=== PATIENT | male | born 1970 | race Caucasian/White ===

== ENCOUNTER 2016-11-22 17:15 | Emergency (ER) | payer OTHER ==
[2016-11-22] MEDS ORDERED: ASPIRIN 81 MG CHEW TAB ONE (17:27)
== END 2016-11-22 22:16 | disposition home or self-care (01) ==
LOC: ER 17:15
DX: R07.2 Precordial pain (principal); E03.9 Hypothyroidism, unspecified; E78.00 Pure hypercholesterolemia, unspecified; Z79.899 Other long term (current) drug therapy; F17.290 Nicotine dependence, other tobacco product, uncomplicated
CPT/HCPCS: 36415; 71010; 80053; 82550; 83735; 84484; 85025; 85610; 85730; 93005